=== PATIENT | male | born 1970 | race African-American/Black ===

== ENCOUNTER 2017-09-23 08:58 | Inpatient (IN) | payer MEDICAID, MEDICARE ==
[~2017-09-23] VITALS: Ht 167.6 cm; Wt 88.1 kg
--- NOTE | 2017-09-23 09:14 | NUR ---
PT IS IN ROOM #2A. DR LUJAN EVALUATED THE PT.
--- NOTE | 2017-09-23 09:14 | NUR ---
CURRENTLY, PT HAS POOR RECALL OF MEDICATIONS AND DOSAGES.
[2017-09-23] MEDS ORDERED: INSULIN REGULAR, HUMAN 1,000 UNITS/10 ML VIAL IV ONE (10:15)
[2017-09-23 10:32] LABS: HEMATOCRIT 34.8 % (36.7-47.1); HEMOGLOBIN 11.2 g/dL (12.5-16.3); MEAN CORPUSCULAR HEMOGLOBIN 29.4 uug (23.8-33.4); MEAN CORPUSCULAR HGB CONC 32 g/dL (32.5-36.3); MEAN CORPUSCULAR VOLUME 90.8 fL (73.0-96.2); PLATELET COUNT (AUTO) 276 K/uL (152-348); RED BLOOD CELL COUNT(AUTO) 3.83 MIL/uL (4.06-5.63); WHITE BLOOD COUNT (AUTO) 9.1 K/uL (3.6-10.2)
[2017-09-23] MEDS ORDERED: INSULIN REGULAR, HUMAN 300 UNIT/3 ML VIAL ONE (10:35)
[2017-09-23 10:40] LABS: ALANINE AMINOTRANSFERASE 37 U/L (16-63); ALKALINE PHOSPHATASE 227 U/L (50-136); ASPARTATE AMINOTRANSFERASE 48 U/L (15-37); BILIRUBIN,DIRECT 0.2 mg/dL (0.0-0.2); BILIRUBIN,TOTAL 0.7 mg/dL (0.2-1.0); CARBON DIOXIDE 21 mmol/L (21-32); CHLORIDE 91 mmol/L (98-107); TOTAL PROTEIN, SERUM 8.1 g/dL (6.4-8.2); UREA NITROGEN, BLOOD 70 mg/dL (7-18)
[2017-09-23 10:50] LABS: CREATININE 11.5 mg/dL (0.6-1.3); GLUCOSE 483 mg/dL (74-106); POTASSIUM 6.2 mmol/L (3.5-5.1)
[2017-09-23 10:52] LABS: ETHANOL < 3 MG/DL (0-0)
--- NOTE | 2017-09-23 10:52 | NUR ---
[facility] WAS CALLED FOR PT'S MEDICAL AND DEMOGRAFIC INFORMATION. PT WISITED [facility] ON 09/22/17. ACCORDING TO [facility]INA PT DID NOT HAVE ANY LABORATORY WORK UP DONE, NO EKG, NO CHEST X-RAYS. DR LUJAN NOTIFIED. ACCORDING TO MEDINA PT's ADDRESS IS : [address] [place] [address], [phone].
[2017-09-23 10:57] LABS: LYMPHOCYTES % (MANUAL) 8 % (20-40); MONOCYTES % (MANUAL) 7 % (2-10); NEUTROPHILS % (MANUAL) 85 % (42-75)
[2017-09-23 10:58] LABS: THYROID STIMULATING HORMONE 3.092 mIU/mL (0.358-3.740)
[2017-09-23] MEDS ORDERED: CALCIUM CHLORIDE 1 GM/10 ML DISP.SYRIN IVP ONE ×2 (11:00→11:11)
[2017-09-23] MEDS ORDERED: ASPIRIN 325 MG TABLET PO ONE (11:00)
[2017-09-23] MEDS ORDERED: ASPIRIN 325 MG TABLET ONE (11:10)
[2017-09-23] MEDS ORDERED: Z GUARD REMEDY PASTE 57 GM TUBE TOP PRN (11:15)
[2017-09-23] MEDS ORDERED: ONDANSETRON 4 MG/2 ML VIAL IV PRN (11:15)
[2017-09-23] MEDS ORDERED: HYDROCODONE/APAP 5-325MG TABLET PO PRN (11:15)
[2017-09-23] MEDS ORDERED: ACETAMINOPHEN 325 MG TABLET PO PRN (11:15)
--- NOTE | 2017-09-23 11:41 | NUR ---
PT WAS TRNASFERED TO ROOM #222. REPORT WAS GIVEN TO DRY KILN FEEDER.
[2017-09-23] MEDS: BLOOD SUGAR DIAGNOSTIC 1 EACH STRIP VI SCH ×3 (12:39→21:03)
[2017-09-23 13:15] VITALS: BP 145/95
[2017-09-23 15:32] VITALS: BP 106/67
--- NOTE | 2017-09-23 15:41 | NUR ---
2D ECHO 25-30%, RESTING COMFORTABLY NO SOB OR C/O PAIN SR ON MONITOR
[2017-09-23] MEDS: INSULIN REGULAR, HUMAN 300 UNIT/3 ML VIAL SQ PRN ×2 (16:00→21:03)
[2017-09-23] MEDS: CARVEDILOL 3.125 MG TABLET PO SCH (17:49)
--- NOTE | 2017-09-23 20:00 | NUR ---
Notified Concha Cruz glucose below 200. Addendum: 09/23/17 at 2018 by MARV WHITE RN Concha Bernard
[2017-09-23 20:16] VITALS: BP 127/89
[2017-09-24] MEDS: BLOOD SUGAR DIAGNOSTIC 1 EACH STRIP VI SCH ×9 (00:07→23:29)
[2017-09-24] MEDS: INSULIN REGULAR, HUMAN 300 UNIT/3 ML VIAL SQ PRN ×3 (03:33→15:25)
[2017-09-24] MEDS: ZOLPIDEM 5 MG TABLET PO PRN ×2 (03:34→20:43)
[2017-09-24 04:00] VITALS: BP 120/89
[2017-09-24 05:22] VITALS: BP 120/89
[2017-09-24] MEDS: PANTOPRAZOLE SODIUM 40 MG TABLET.DR PO SCH (06:28)
[2017-09-24 07:30] VITALS: BP 129/97
--- NOTE | 2017-09-24 07:48 | NUR ---
ACCUCHEK 48, AWAKE ALERT AND ORIENTED X3, WARM AND DRY SKIN, APPLE JUICE WITH PACKET OF SUGAR GIVEN. SR ON MONITOR WILL OBSERVE.
[2017-09-24 08:12] LABS: BILIRUBIN,TOTAL 0.7 mg/dL (0.2-1.0); MAGNESIUM 1.8 mg/dL (1.8-2.4); PHOSPHOROUS 5.3 mg/dL (2.5-4.9); TOTAL PROTEIN, SERUM 7.1 g/dL (6.4-8.2)
[2017-09-24 08:22] LABS: CREATININE 10.3 mg/dL (0.6-1.3)
[2017-09-24] MEDS: CARVEDILOL 3.125 MG TABLET PO SCH ×2 (08:22→16:39)
[2017-09-24 08:40] LABS: THYROID STIMULATING HORMONE 3.012 mIU/mL (0.358-3.740)
--- NOTE | 2017-09-24 08:52 | NUR ---
SEEN BY DR AVILA WITH ORDERS. SEE NOTES.
[2017-09-24] MEDS ORDERED: LISINOPRIL 5 MG TABLET PO SCH (09:00)
[2017-09-24] MEDS ORDERED: ASPIRIN EC 325 MG TABLET.DR PO SCH (09:00)
--- NOTE | 2017-09-24 09:00 | NUR ---
BS 121 AWAKE ALERT AND ORIENTED X2. OBSERVE SEEN BY DR AVILA SEE NOTES
[2017-09-24 10:58] LABS: BILIRUBIN,DIRECT 0.3 mg/dL (0.0-0.2); BILIRUBIN,TOTAL 0.7 mg/dL (0.2-1.0); TOTAL PROTEIN, SERUM 7.2 g/dL (6.4-8.2)
[2017-09-24 10:58] LABS: HEMATOCRIT 32.6 % (36.7-47.1); HEMOGLOBIN 10.7 g/dL (12.5-16.3); MEAN CORPUSCULAR HEMOGLOBIN 30.1 uug (23.8-33.4); MEAN CORPUSCULAR HGB CONC 33 g/dL (32.5-36.3); MEAN CORPUSCULAR VOLUME 91.6 fL (73.0-96.2); PLATELET COUNT (AUTO) 218 K/uL (152-348); RED BLOOD CELL COUNT(AUTO) 3.56 MIL/uL (4.06-5.63); WHITE BLOOD COUNT (AUTO) 7.8 K/uL (3.6-10.2)
[2017-09-24 11:28] LABS: EOSINOPHILS % (MANUAL) 1 % (0-8); LYMPHOCYTES % (MANUAL) 15 % (20-40); MONOCYTES % (MANUAL) 12 % (2-10); NEUTROPHILS % (MANUAL) 72 % (42-75)
[2017-09-24 12:12] VITALS: BP 117/77
--- NOTE | 2017-09-24 14:30 | NUR ---
PATIENT WANTS TO GO DOWN AND SMOKE NO SMOKING POLICY REINFORCED, HOSPITALIST NOTIFIED WITH ORDERS. WILL START NICOTINE PATCH AND 1:1 SITTER
[2017-09-24 15:27] VITALS: BP 129/93
[2017-09-24 20:00] VITALS: BP 136/88
--- NOTE | 2017-09-24 20:30 | NUR ---
Received patient awake & alert watching TV, no SOB denies chest pain. 1:1 sitter in room. Vital signs WNL. Patient requesting for a sleep meds, Ambien 10mg p.o given.
--- NOTE | 2017-09-25 | NUR ---
Refused 12 MN accucheck.
[2017-09-25 00:10] VITALS: BP 125/88
[2017-09-25 04:28] VITALS: BP 129/94
[2017-09-25] MEDS: PANTOPRAZOLE SODIUM 40 MG TABLET.DR PO SCH (05:54)
--- NOTE | 2017-09-25 06:00 | NUR ---
Fairly rested. Current accucheck 353 mg/dl, covered with 12 units Regular insulin per Insulin sliding scale coverage.
[2017-09-25] MEDS: BLOOD SUGAR DIAGNOSTIC 1 EACH STRIP VI SCH ×6 (06:13→23:15)
[2017-09-25] MEDS: INSULIN REGULAR, HUMAN 300 UNIT/3 ML VIAL SQ PRN ×4 (06:16→20:56)
[2017-09-25 07:07] LABS: MAGNESIUM 1.8 mg/dL (1.8-2.4)
[2017-09-25 07:12] LABS: POTASSIUM 6.8 mmol/L (3.5-5.1)
[2017-09-25 07:13] LABS: CREATININE 12.2 mg/dL (0.6-1.3)
[2017-09-25 07:33] LABS: BASOPHILS # (AUTO) 0.1 K/uL (0.0-8.0); BASOPHILS % (AUTO) 0.8 % (0.0-2.0); EOSINOPHILS # (AUTO) 0.1 K/uL (0.0-0.7); EOSINOPHILS % (AUTO) 0.7 % (0.0-7.0); HEMATOCRIT 33.7 % (36.7-47.1); HEMOGLOBIN 11.1 g/dL (12.5-16.3); LYMPHOCYTES # (AUTO) 4.1 K/uL (20.0-40.0); LYMPHOCYTES % (AUTO) 54.2 % (20.5-51.5); MEAN CORPUSCULAR HEMOGLOBIN 29.7 uug (23.8-33.4); MEAN CORPUSCULAR HGB CONC 33 g/dL (32.5-36.3); MEAN CORPUSCULAR VOLUME 90.2 fL (73.0-96.2); MONOCYTES # (AUTO) 0.5 K/uL (2.0-10.0); MONOCYTES % (AUTO) 6.7 % (0.0-11.0); NEUTROPHILS # (AUTO) 2.9 K/uL (1.8-8.9); NEUTROPHILS % (AUTO) 37.6 % (38.5-71.5); PLATELET COUNT (AUTO) 234 K/uL (152-348); RED BLOOD CELL COUNT(AUTO) 3.73 MIL/uL (4.06-5.63); WHITE BLOOD COUNT (AUTO) 7.6 K/uL (3.6-10.2)
[2017-09-25 08:00] VITALS: BP 120/87
--- NOTE | 2017-09-25 08:00 | NUR ---
AWAKE COOPERATE NO SOB OR PAIN RESTING WELL WITH CALL THOMAS IN REACH AND ON FALL PRECAUTION
[2017-09-25 08:06] LABS: HEPATITIS A AB, TOTAL Negative (Negative); HEPATITIS B SURFACE AB Reactive (.); HEPATITIS B SURFACE AG Negative (Negative)
[2017-09-25] MEDS: CARVEDILOL 3.125 MG TABLET PO SCH ×2 (08:19→17:02)
[2017-09-25] MEDS: LISINOPRIL 5 MG TABLET PO SCH (08:19)
[2017-09-25] MEDS: ASPIRIN EC 81 MG TABLET.DR PO SCH (08:19)
[2017-09-25] MEDS: NICOTINE 14 MG/24HR PATCH TD SCH (08:20)
[2017-09-25] MEDS ORDERED: ASPIRIN EC 325 MG TABLET.DR PO SCH (09:00)
[2017-09-25 10:42] VITALS: BP 100/48
[2017-09-25 10:55] LABS: EOSINOPHILS % (MANUAL) 2 % (0-8); LYMPHOCYTES % (MANUAL) 23 % (20-40); MONOCYTES % (MANUAL) 9 % (2-10); NEUTROPHILS % (MANUAL) 66 % (42-75)
--- NOTE | 2017-09-25 13:30 | NUR ---
DR AVILA WAS HERE LAB RESULT INFORM STATE ORDER HD TODAY
[2017-09-25 14:32] VITALS: BP 102/50
--- NOTE | 2017-09-25 17:30 | NUR ---
START HD TODAY DOING WELL NO PAIN
--- NOTE | 2017-09-25 18:00 | NUR ---
STABLE HEMODYNAMIC STATUS NO ACUTE DISTRESS SAFETY MEASURE PROVIDED CALL LIGHT IN REACH
--- NOTE | 2017-09-25 20:24 | NUR ---
Patient in room S/P Hemodialysis (2 liters out). No SOB denies chest pain. Vital signs are stable. Night snacks provided.
[2017-09-25] MEDS: ZOLPIDEM 5 MG TABLET PO PRN (20:51)
[2017-09-26] MEDS: PANTOPRAZOLE SODIUM 40 MG TABLET.DR PO SCH (04:50)
[2017-09-26] MEDS: BLOOD SUGAR DIAGNOSTIC 1 EACH STRIP VI SCH ×5 (04:50→20:20)
[2017-09-26] MEDS: INSULIN REGULAR, HUMAN 300 UNIT/3 ML VIAL SQ PRN ×3 (04:52→20:21)
--- NOTE | 2017-09-26 07:00 | NUR ---
No acute resp distress, fairly rested slept 5 hours. Assisted w/ all needs. 1:1 sitter in room.
[2017-09-26 07:48] LABS: BILIRUBIN,TOTAL 0.6 mg/dL (0.2-1.0); MAGNESIUM 1.8 mg/dL (1.8-2.4); PHOSPHOROUS 5.3 mg/dL (2.5-4.9); POTASSIUM 5.7 mmol/L (3.5-5.1); TOTAL PROTEIN, SERUM 6.9 g/dL (6.4-8.2)
[2017-09-26 07:52] LABS: HEMATOCRIT 31.1 % (36.7-47.1); HEMOGLOBIN 10.4 g/dL (12.5-16.3); MEAN CORPUSCULAR HEMOGLOBIN 30.7 uug (23.8-33.4); MEAN CORPUSCULAR HGB CONC 34 g/dL (32.5-36.3); MEAN CORPUSCULAR VOLUME 91.4 fL (73.0-96.2); PLATELET COUNT (AUTO) 218 K/uL (152-348); WHITE BLOOD COUNT (AUTO) 6.9 K/uL (3.6-10.2)
[2017-09-26 07:55] LABS: CREATININE 10.2 mg/dL (0.6-1.3)
[2017-09-26] MEDS: CARVEDILOL 3.125 MG TABLET PO SCH ×3 (08:00→17:05)
--- NOTE | 2017-09-26 08:00 | NUR ---
AWAKE ORTX2 SOMEFORGETFUL BUT ABLE TO FOLLOW SIMPLE DIRECTION WELL NO ACUTE DISTRESS OR PAIN GALI A-V SHUNT INPLACE WITH GOOD BRUIT/THRILL RESTING WITH CALL LIGHT IN REACH AND SITTER 1:1 FOR SAFETY AT BEDSIDE
--- NOTE | 2017-09-26 08:30 | NUR ---
DR AVILA SEEN PATIENT AND LAB RESULT AND ORDER HD IN AM AND LAB WORK TODAY EAT BREAKFAST WELL REFUSED TO DO ACCU CHECK BS PRIOR EAT THIS AM
[2017-09-26 08:40] LABS: EOSINOPHILS % (MANUAL) 2 % (0-8); LYMPHOCYTES % (MANUAL) 23 % (20-40); MONOCYTES % (MANUAL) 8 % (2-10); NEUTROPHILS % (MANUAL) 67 % (42-75)
[2017-09-26] MEDS: LISINOPRIL 5 MG TABLET PO SCH ×2 (09:00→11:30)
[2017-09-26] MEDS: NICOTINE 14 MG/24HR PATCH TD SCH (09:41)
[2017-09-26] MEDS: ASPIRIN EC 81 MG TABLET.DR PO SCH (09:44)
[2017-09-26 11:30] VITALS: BP 135/85
[2017-09-26 16:15] VITALS: BP 148/83
--- NOTE | 2017-09-26 17:30 | NUR ---
STABLE HEMODYNAMIC STATUS NO ACUTE DISTRESS NO SOB OR PAIN SAFETY MEASURE PROVIDED CALL LIGHT IN REACH AND SITTER 1:1 AT BEDSIDE
[2017-09-26 20:00] VITALS: BP 134/95
[2017-09-26] MEDS: ZOLPIDEM 5 MG TABLET PO PRN (20:10)
--- NOTE | 2017-09-26 21:00 | NUR ---
Patient in room w/ 1:1 sitter. Awake alert & oriented no SOB denies any pain. Patient requesting for his sleeping pills. Vital signs are stable. 8 pm Accu check showed 168 mg/dl, 3 units Regular insulin administered SQ. Ambien 10mg po given as ordered.
--- NOTE | 2017-09-27 | NUR ---
Patient asleep, refused 12 MN accu check.
[2017-09-27 04:00] VITALS: BP 129/92
[2017-09-27] MEDS: BLOOD SUGAR DIAGNOSTIC 1 EACH STRIP VI SCH ×7 (04:00→23:40)
--- NOTE | 2017-09-27 04:00 | NUR ---
Patient asleep resting comfortably. Refused 4AM accu check
[2017-09-27] MEDS: PANTOPRAZOLE SODIUM 40 MG TABLET.DR PO SCH (06:21)
--- NOTE | 2017-09-27 06:30 | NUR ---
Awake, assisted to the bathroom.
--- NOTE | 2017-09-27 06:58 | NUR ---
Vital signs WNL, patient still in the bathroom.
[2017-09-27] MEDS: CARVEDILOL 3.125 MG TABLET PO SCH ×2 (07:56→18:00)
[2017-09-27] MEDS: ASPIRIN EC 81 MG TABLET.DR PO SCH (08:00)
[2017-09-27] MEDS: NICOTINE 14 MG/24HR PATCH TD SCH (08:01)
[2017-09-27] MEDS: LISINOPRIL 5 MG TABLET PO SCH (08:01)
[2017-09-27] MEDS: INSULIN REGULAR, HUMAN 300 UNIT/3 ML VIAL SQ PRN ×2 (08:03→23:43)
[2017-09-27 12:29] VITALS: BP 142/86
[2017-09-27 15:50] VITALS: BP 134/96
--- NOTE | 2017-09-27 18:53 | NUR ---
PT OBSERVED IN THE RESTROOM, AOX4, NO SIGNS OF ACUTE DISTRESS, PT HAD DIALYSIS DONE TODAY. CONTINUE TO MONITOR PT.
--- NOTE | 2017-09-27 19:02 | NUR ---
PT HAS REFUSED ACCU CHECKS THROUGHOUT THE DAY.
--- NOTE | 2017-09-27 19:30 | NUR ---
RECEIVED SHIFT REPORT FROM GINNA BEARD. PT IN RESTROOM AT THIS TIME. DENIES PAIN, SOB, C/P, N/V. PT ASSISTED TO BED, BED IN LOW AND LOCKED POSITION WITH BILATERAL SIDERAILS UP. CALL LIGHT WITHIN REACH.
[2017-09-27 20:00] VITALS: BP 146/94
[2017-09-27] MEDS: INSULIN GLARGINE,HUM 300 UNITS/3 ML CARTRIDGE SQ SCH (20:07)
--- NOTE | 2017-09-27 20:09 | NUR ---
PT REFUSED ACCUCHECK AND LANTUS. EXPLAINED RISKS AND BENEFITS. OFFERED X 3, PT STILL REFUSED.
[2017-09-27] MEDS: ZOLPIDEM 5 MG TABLET PO PRN (22:11)
[2017-09-28] MEDS: BLOOD SUGAR DIAGNOSTIC 1 EACH STRIP VI SCH ×5 (03:57→20:05)
[2017-09-28] MEDS: INSULIN REGULAR, HUMAN 300 UNIT/3 ML VIAL SQ PRN ×3 (03:58→20:04)
[2017-09-28 05:35] VITALS: BP 138/90
[2017-09-28] MEDS: PANTOPRAZOLE SODIUM 40 MG TABLET.DR PO SCH (06:12)
[2017-09-28] MEDS: LISINOPRIL 5 MG TABLET PO SCH (08:59)
[2017-09-28] MEDS: NICOTINE 14 MG/24HR PATCH TD SCH (08:59)
[2017-09-28] MEDS: CARVEDILOL 3.125 MG TABLET PO SCH ×2 (08:59→17:23)
[2017-09-28] MEDS: ASPIRIN EC 81 MG TABLET.DR PO SCH (08:59)
[2017-09-28 10:30] VITALS: BP 147/106
[2017-09-28 15:48] VITALS: BP 135/100
--- NOTE | 2017-09-28 18:40 | NUR ---
PT SITTING UP IN A CHAIR READING, WITH NO ACUTE DISTRESS. EXPRESSING THAT HE WANTS TO GO HOME. PT IS IRRITABLE, COOPERATIVE WITH MEDICATION BUT NOT WITH ACCU CHECKS.PT REFUSES TO PROVIDE A URINE SAMPLE.AOX3, BUT CAN NOT RECALL THE MEDICATIONS HE TAKES OR THE FACILITY THAT HE STAYS AT. CONTINUE TO MONITOR PT.
[2017-09-28 19:00] VITALS: BP 146/98
--- NOTE | 2017-09-28 19:37 | NUR ---
RECEIVED SHIFT REPORT FROM GINNA BEARD. PT IN BED AT THIS TIME, DENIES PAIN, C/P, SOB, N/V. BED IN LOW AND LOCKED POSITION WITH BILATERAL UPPER SIDERAILS UP. CALL LIGHT WITHIN REACH.
[2017-09-28] MEDS: INSULIN GLARGINE,HUM 300 UNITS/3 ML CARTRIDGE SQ SCH (20:04)
[2017-09-28] MEDS: ZOLPIDEM 5 MG TABLET PO PRN (22:39)
[2017-09-29] VITALS: BP 150/88
--- NOTE | 2017-09-29 01:50 | NUR ---
UPON DOING ROUNDS, PT NOTED TO BE DIAPHORETIC AND WITH LABORED BREATHING. PT HAD REFUSED ACCUCHECK AT 0000. ACCUCHECK DONE AT 0150, BS 18 ON RETEST. PT IS AROUSABLE, ABLE TO DRINK ORANGE JUICE WITH ASSIST. CHARGE NURSE NOTIFIED, MADE AWARE. Addendum: 09/29/17 at 0255 by WHITLEY PEOPLES RN PT PLACED ON O2 3 LPM VIA N/C.
--- NOTE | 2017-09-29 02:40 | NUR ---
RECHECK ACCUCHECK, 24. IV ACCESS OBTAINED 20 G L AC. D50 ADMIN ORDERED BY MD. WILL CONTINUE TO MONITOR. PT IS SLEEPING, BUT EASILY AROUSABLE AT THIS TIME.
[2017-09-29] MEDS: DEXTROSE 50% 50 ML DISP.SYRIN IV PRN (02:47)
[2017-09-29] MEDS: INSULIN REGULAR, HUMAN 300 UNIT/3 ML VIAL SQ PRN ×4 (03:01→21:05)
[2017-09-29] MEDS: BLOOD SUGAR DIAGNOSTIC 1 EACH STRIP VI SCH ×6 (03:01→21:04)
--- NOTE | 2017-09-29 03:02 | NUR ---
0400 ACCUCHECK 148. PT REFUSES INSULIN AT THIS TIME. WILL CONTINUE TO MONITOR. PT IN BED, STABLE AT THIS TIME.
[2017-09-29 04:00] VITALS: BP 150/97
[2017-09-29] MEDS ORDERED: CLONIDINE HCL 0.1 MG TABLET PO PRN (04:00)
--- NOTE | 2017-09-29 04:02 | NUR ---
PT C/O FEELING "OFF", V/S CHECKED 162/98, HR 96, RR 20, SPO2 98% ON ROOM AIR. DR. HER NOTIFIED, RECEIVED ORDERS FOR CLONIDINE 0.1 MG PO PRN Q6H FOR SBP > 160. WILL ADMIN CLONIDINE PER ORDER AND REASSESS.
[2017-09-29 04:05] VITALS: BP 162/98
--- NOTE | 2017-09-29 05:08 | NUR ---
V/S RECHECKED POST CLONIDINE ADMIN - 134/86, HR 92, RR 18, SPO2 98% ON O2 3 LPM VIA N/C.
[2017-09-29] MEDS: PANTOPRAZOLE SODIUM 40 MG TABLET.DR PO SCH (06:16)
--- NOTE | 2017-09-29 06:16 | NUR ---
PT REFUSED PROTONIX. EXPLAINED RISKS AND BENEFITS, OFFERED X 3. PT STILL REFUSED. PT IS VERY NON-COMPLIANT WITH MANY ASPECTS OF HIS CARE. ADDITIONAL PT TEACHING AND REINFORCEMENT IS NEEDED.
--- NOTE | 2017-09-29 07:30 | NUR ---
RESTING QUIET IN BED NO SOB OR PAIN ON ASPIRATION /FALL PRECAUTION CALL LIGHT IN REACH
--- NOTE | 2017-09-29 08:00 | NUR ---
ON HD AT THIS TIME DOING WELL
--- NOTE | 2017-09-29 08:15 | NUR ---
ACCU CHECK BS PRIOR EAT THIS AM WAS VERY LOW IT WAS 41 AND REPEAT IT WAS 43 LAB WAS CALL TO DO STAT GLUCOSE AND JUICE / COOFEE GIVEN AND CLOSED OBSERVATION
--- NOTE | 2017-09-29 08:25 | NUR ---
LAB DRAW FOR GLUCOSE PATIENT EAT BREAKFAST AT THIS TIME 100
[2017-09-29] MEDS: ASPIRIN EC 81 MG TABLET.DR PO SCH (08:26)
[2017-09-29] MEDS: NICOTINE 14 MG/24HR PATCH TD SCH (08:26)
[2017-09-29 08:33] LABS: HEMATOCRIT 28.3 % (36.7-47.1); HEMOGLOBIN 9.4 g/dL (12.5-16.3)
--- NOTE | 2017-09-29 09:00 | NUR ---
CHECK GLUCOSE AGAIN IT WAS 60 AND CLOSED OBSERVATION
--- NOTE | 2017-09-29 10:00 | NUR ---
ACCU CHECK BS WAS 140 AT THIS TIME RESTING STILL ON HD FLORIN PROCEDURE WELL
[2017-09-29 10:29] LABS: POTASSIUM 5.8 mmol/L (3.5-5.1)
[2017-09-29 10:30] LABS: CREATININE 9.4 mg/dL (0.6-1.3)
--- NOTE | 2017-09-29 11:30 | NUR ---
hd finished take out 2000ml and vs taken stable RESTING BS ACCU CHECK WAS 181 AT THIS TIME
[2017-09-29 11:42] VITALS: BP 121/69
[2017-09-29] MEDS: CARVEDILOL 3.125 MG TABLET PO SCH ×2 (11:50→17:44)
[2017-09-29] MEDS: LISINOPRIL 5 MG TABLET PO SCH (11:50)
--- NOTE | 2017-09-29 13:00 | NUR ---
EAT LUNCH WELL NO N/V OR PAIN OOB TO BRP HAVING 1 BM THIS AFTERNOON
[2017-09-29 16:00] VITALS: BP 138/92
--- NOTE | 2017-09-29 17:30 | NUR ---
STABLE HEMODYNAMIC STATUS ,PAIN UNDER CONTROL SAFETY MEASURE PROVIDED CALL LIGHT IN REACH
[2017-09-29 19:00] VITALS: BP 142/83
--- NOTE | 2017-09-29 19:40 | NUR ---
RECEIVED SHIFT REPORT FROM GINNA ALMONTE. PT RESTING IN BED. DENIES PAIN, C/P, SOB, N/V. BED IN LOW AND LOCKED POSITION WITH BILATERAL UPPER SIDERAILS UP. CALL LIGHT WITHIN REACH. PT TEACHING PROVIDED RE GLYCEMIC CONTROL. WILL CONTINUE TO MONITOR.
[2017-09-29] MEDS: INSULIN GLARGINE,HUM 300 UNITS/3 ML CARTRIDGE SQ SCH (21:00)
[2017-09-29] MEDS: ZOLPIDEM 5 MG TABLET PO PRN (21:25)
[2017-09-30] MEDS: INSULIN REGULAR, HUMAN 300 UNIT/3 ML VIAL SQ PRN ×5 (00:05→23:44)
[2017-09-30] MEDS: BLOOD SUGAR DIAGNOSTIC 1 EACH STRIP VI SCH ×6 (00:06→19:52)
[2017-09-30 04:00] VITALS: BP 137/80
[2017-09-30] MEDS: PANTOPRAZOLE SODIUM 40 MG TABLET.DR PO SCH (06:31)
--- NOTE | 2017-09-30 08:00 | NUR ---
AWAKE COOPERATE WELL AT THIS TIME EAT BREAKFAST WITH GOOD APPETITE NO ACUTE DISTRESS RESTING IN BED WITH CALL LIGHT IN REACH
[2017-09-30] MEDS: NICOTINE 14 MG/24HR PATCH TD SCH (08:16)
[2017-09-30] MEDS: ASPIRIN EC 81 MG TABLET.DR PO SCH (08:16)
[2017-09-30] MEDS: LISINOPRIL 5 MG TABLET PO SCH (08:17)
[2017-09-30] MEDS: CARVEDILOL 3.125 MG TABLET PO SCH ×2 (08:17→17:57)
[2017-09-30 11:12] VITALS: BP 133/96
--- NOTE | 2017-09-30 13:00 | NUR ---
PATIENT STATE WANT TO GO HOME PROJECT MANAGEMENT PROFESSOR WAS AWARE STILL WORKING ON D/C PLANNING
[2017-09-30 15:23] VITALS: BP 136/95
--- NOTE | 2017-09-30 17:30 | NUR ---
STABLE CONDITION NO ACUTE DISTRESS ,PAIN AND NAUSEA UNDER CONTROL SAFETY MEASURE PROVIDED CALL LIGHT IN REACH AND REMIND TO CALL WHEN NEEDED
[2017-09-30 19:00] VITALS: BP 114/99
--- NOTE | 2017-09-30 19:10 | NUR ---
RECEIVED PT AWAKE ON BED, AOX1, NO SOB, DENIES ANY CHEST PAIN. IV SITE ON LFA, PATENT AND INTACT. AV SHUNT ON GALI, INTACT. SAFETY MEASURES INITIATED, CALL THOMAS WITHIN REACH.
[2017-09-30] MEDS: INSULIN GLARGINE,HUM 300 UNITS/3 ML CARTRIDGE SQ SCH (20:55)
[2017-09-30] MEDS: ZOLPIDEM 5 MG TABLET PO PRN (23:35)
[2017-10-01] MEDS: BLOOD SUGAR DIAGNOSTIC 1 EACH STRIP VI SCH ×6 (00:33→20:55)
--- NOTE | 2017-10-01 00:49 | NUR ---
PT NOTED TO HAVE PRODUCTIVE DRY COUGH SINCE 0000H, PAGED COMPENSATION ASSOCIATE ON PT'S STATUS. ORDER RECEIVED TO START ON ROBITUSSIN 10ML PO Q4HPRN NEEDED FOR COUGH. ORDERS READ BACK AND CARRIED OUT.
[2017-10-01] MEDS: GUAIFENESIN/CODEINE 5 ML LIQUID UDC PO PRN ×3 (00:55→22:52)
[2017-10-01 04:00] VITALS: BP 115/73
--- NOTE | 2017-10-01 04:40 | NUR ---
ACCUCHECK OF 58 MG/DL, PATIENT AROUSABLE, DENIES ANY LIGHTHEADEDNESS OR WEAKNESS. HR OF 87. APPLE JUICE GIVEN. WILL REASSESS
--- NOTE | 2017-10-01 05:37 | NUR ---
REASSESSED BLOOD SUGAR LEVEL, 104MG/DL. PT ALERT AND AROUSABLE TO NAME. NO DIAPHORESIS, DENIES ANY LIGHTHEADEDNESS.
[2017-10-01] MEDS: PANTOPRAZOLE SODIUM 40 MG TABLET.DR PO SCH (06:03)
--- NOTE | 2017-10-01 06:52 | NUR ---
PT ASLEEP ON BED, NO SIGNS OF RESPIRATORY DISTRESS NOTED. PT HAS BEEN COOPERATIVE WITH CARE. SAFE ENVIRONMENT MAINTAINED AT ALL TIMES, CALL THOMAS WITHIN REACH.
[2017-10-01 07:27] LABS: BASOPHILS # (AUTO) 0.1 K/uL (0.0-8.0); BASOPHILS % (AUTO) 1.4 % (0.0-2.0); EOSINOPHILS # (AUTO) 0.1 K/uL (0.0-0.7); EOSINOPHILS % (AUTO) 1.4 % (0.0-7.0); HEMATOCRIT 29.2 % (36.7-47.1); HEMOGLOBIN 9.6 g/dL (12.5-16.3); LYMPHOCYTES # (AUTO) 2.7 K/uL (20.0-40.0); LYMPHOCYTES % (AUTO) 40.4 % (20.5-51.5); MEAN CORPUSCULAR HEMOGLOBIN 30.1 uug (23.8-33.4); MEAN CORPUSCULAR HGB CONC 33 g/dL (32.5-36.3); MEAN CORPUSCULAR VOLUME 91.6 fL (73.0-96.2); MONOCYTES # (AUTO) 0.5 K/uL (2.0-10.0); MONOCYTES % (AUTO) 8.1 % (0.0-11.0); NEUTROPHILS # (AUTO) 3.2 K/uL (1.8-8.9); NEUTROPHILS % (AUTO) 48.7 % (38.5-71.5); PLATELET COUNT (AUTO) 212 K/uL (152-348); RED BLOOD CELL COUNT(AUTO) 3.19 MIL/uL (4.06-5.63); WHITE BLOOD COUNT (AUTO) 6.6 K/uL (3.6-10.2)
[2017-10-01 07:35] LABS: BILIRUBIN,TOTAL 0.6 mg/dL (0.2-1.0); PHOSPHOROUS 5.6 mg/dL (2.5-4.9); TOTAL PROTEIN, SERUM 7.1 g/dL (6.4-8.2)
[2017-10-01 07:41] LABS: CREATININE 10.2 mg/dL (0.6-1.3); POTASSIUM 6.5 mmol/L (3.5-5.1)
--- NOTE | 2017-10-01 07:57 | NUR ---
Sleeping, appears comfortable. Not in distress
[2017-10-01] MEDS: CARVEDILOL 3.125 MG TABLET PO SCH ×2 (08:00→20:00)
[2017-10-01 08:59] LABS: EOSINOPHILS % (MANUAL) 1 % (0-8); LYMPHOCYTES % (MANUAL) 28 % (20-40); MONOCYTES % (MANUAL) 12 % (2-10); NEUTROPHILS % (MANUAL) 59 % (42-75)
[2017-10-01] MEDS: LISINOPRIL 5 MG TABLET PO SCH (09:00)
--- NOTE | 2017-10-01 09:00 | NUR ---
Spoke with Dr. Chowdhury and Dr. Thornton, K 6.5, for hemodialysis
[2017-10-01] MEDS: ASPIRIN EC 81 MG TABLET.DR PO SCH (09:21)
[2017-10-01] MEDS: NICOTINE 14 MG/24HR PATCH TD SCH (09:21)
[2017-10-01 12:08] VITALS: BP 138/73
[2017-10-01] MEDS: INSULIN REGULAR, HUMAN 300 UNIT/3 ML VIAL SQ PRN ×2 (12:32→20:57)
--- NOTE | 2017-10-01 14:00 | NUR ---
Spoke with M[facility] RN regarding hemodialysis schedule today
[2017-10-01 15:09] LABS: HEPATITIS A AB, TOTAL Negative (Negative); HEPATITIS B SURFACE AB Reactive (.); HEPATITIS B SURFACE AG Negative (Negative)
[2017-10-01 16:38] VITALS: BP 112/70
--- NOTE | 2017-10-01 18:47 | NUR ---
NPO during hemodialysis, Insulin sliding scale not given. Endorsed fro further care and follow up
--- NOTE | 2017-10-01 19:10 | NUR ---
PT IN BED FROM POST HEMODIALYSIS, OUTPUT OF 2L PER DIALYSIS NURSE, MEGAN CHACKO. NO SIGNS OF RESPIRATORY DISTRESS NOTED. IV SITE LFA, PATENT AND INTACT. SAFETY MEASURES INITIATED, CALL THOMAS WITHIN REACH.
[2017-10-01 20:00] VITALS: BP 126/96
[2017-10-01] MEDS: INSULIN GLARGINE,HUM 300 UNITS/3 ML CARTRIDGE SQ SCH (21:03)
--- NOTE | 2017-10-01 22:30 | NUR ---
PT COMPLAINT OF STOMACH UPSET AND HEART BURN. PAGED MD I&C TECH, DR OMALLEY TO NOTIFY ON PT STATUS. ORDERS RECEIVED TO GIVE MYLANTA 30ML PO Q6HPRN FOR STOMACH UPSET. ORDERS READ BACK AND CARRIED OUT.
[2017-10-01] MEDS: MAG HYDROX/AL HYDROX/SIMETH 30 ML LIQUID UDC PO PRN (22:52)
[2017-10-01] MEDS: ZOLPIDEM 5 MG TABLET PO PRN (23:25)
[2017-10-02] MEDS: BLOOD SUGAR DIAGNOSTIC 1 EACH STRIP VI SCH ×7 (01:10→23:29)
[2017-10-02] MEDS: INSULIN REGULAR, HUMAN 300 UNIT/3 ML VIAL SQ PRN ×3 (01:13→20:20)
[2017-10-02 04:56] VITALS: BP 136/99
--- NOTE | 2017-10-02 06:40 | NUR ---
PT RESTING COMFORTABLY ON BED, NO SOB, DENIES ANY CHEST PAIN. ALL NEEDS MET AND ATTENDED. SAFE ENVIRONMENT MAINTAINED AT ALL TIMES, CALL THOMAS WITHIN REACH
[2017-10-02] MEDS: PANTOPRAZOLE SODIUM 40 MG TABLET.DR PO SCH (06:41)
[2017-10-02] MEDS: LISINOPRIL 5 MG TABLET PO SCH (08:46)
[2017-10-02] MEDS: CARVEDILOL 3.125 MG TABLET PO SCH ×2 (08:46→17:24)
[2017-10-02] MEDS: ASPIRIN EC 81 MG TABLET.DR PO SCH (08:46)
[2017-10-02] MEDS: NICOTINE 14 MG/24HR PATCH TD SCH (08:46)
--- NOTE | 2017-10-02 08:49 | NUR ---
Blood glucose 35. Patient is angry with lancets/poking, refused recheck. Patient is eating breakfast and asymptomatic. alert and denies weakness. Will monitor
[2017-10-02 11:41] VITALS: BP 131/72
[2017-10-02] MEDS: DEXTROSE 50% 50 ML DISP.SYRIN IV PRN (12:24)
--- NOTE | 2017-10-02 12:31 | NUR ---
Blood glucose 62; No IV access,and refused reinsertion. D50 not given. Juice given with lunch. Discussed with Juan DOCTOR OF CHIROPRACTIC regarding low blood glucose results and adjusting Lantus dose
[2017-10-02] MEDS: MAG HYDROX/AL HYDROX/SIMETH 30 ML LIQUID UDC PO PRN (14:57)
--- NOTE | 2017-10-02 16:30 | NUR ---
BG 144; will not cover, will continue to monitor
[2017-10-02 16:34] VITALS: BP 137/94
--- NOTE | 2017-10-02 17:00 | NUR ---
With discharge order but no placement. Juan Pierre informed.
[2017-10-02] MEDS ORDERED: LACTULOSE 20 G/30 ML LIQUID UDC PO PRN (17:45)
--- NOTE | 2017-10-02 18:00 | NUR ---
No BM x 2 days. Lactulose po given. Had shower. comfortable
--- NOTE | 2017-10-02 19:20 | NUR ---
RECEIVED PATIENT SITTING AT THE SIDE OF HIS BED. AAOX2. IN NO ACUTE DISTRESS. AV FISTULA ON RIGHT UPPER ARM INTACT. NEEDS ASSESSED AND ATTENDED TO. SAFETY MEASURE INITIATED AND CALL THOMAS WITHIN REACH.
[2017-10-02] MEDS ORDERED: BISACODYL 10 MG SUPP.RECT RC PRN (19:45)
[2017-10-02 20:00] VITALS: BP 145/97
[2017-10-02] MEDS: INSULIN GLARGINE,HUM 300 UNITS/3 ML CARTRIDGE SQ SCH (20:27)
[2017-10-03] MEDS: ZOLPIDEM 5 MG TABLET PO PRN ×2 (01:06→23:12)
[2017-10-03] MEDS: GUAIFENESIN/CODEINE 5 ML LIQUID UDC PO PRN ×2 (02:42→23:17)
[2017-10-03] MEDS: BLOOD SUGAR DIAGNOSTIC 1 EACH STRIP VI SCH ×5 (04:43→20:58)
[2017-10-03] MEDS: PANTOPRAZOLE SODIUM 40 MG TABLET.DR PO SCH (06:19)
--- NOTE | 2017-10-03 06:23 | NUR ---
AAOX2. IN NO ACUTE DISTRESS. AV FISTULA ON RIGHT UPPER ARM INTACT. OCCASIONAL COUGH NOTED. PLACED ON O2 AT 2LPM VIA NC FOR COMFORT. OFFERED TO HAVE IV SITE STARTED, BUT PATIENT REFUSED. SAFETY MEASURE MAINTAINED AND CALL THOMAS WITHIN REACH.
[2017-10-03] MEDS: ASPIRIN EC 81 MG TABLET.DR PO SCH (08:02)
[2017-10-03] MEDS: LISINOPRIL 5 MG TABLET PO SCH (08:02)
[2017-10-03] MEDS: CARVEDILOL 3.125 MG TABLET PO SCH ×2 (08:02→17:09)
[2017-10-03] MEDS: NICOTINE 14 MG/24HR PATCH TD SCH (08:02)
[2017-10-03 11:52] VITALS: BP 112/81
--- NOTE | 2017-10-03 13:15 | NUR ---
DIALYSIS DONE ONE LITTER FLUIDS OUT,
[2017-10-03 16:00] VITALS: BP 145/96
[2017-10-03] MEDS: INSULIN REGULAR, HUMAN 300 UNIT/3 ML VIAL SQ PRN ×2 (16:39→21:01)
--- NOTE | 2017-10-03 17:00 | NUR ---
PT REFUSING THE BLOOD PRESSURE MEDS AND CHARGE NURSE MADE AWARE
--- NOTE | 2017-10-03 19:20 | NUR ---
RECEIVED PT ALERT,AWAKE, AND ORIENTEDX4. PT SHOWS NO SIGNS OF DISTRESS. PT NO IV ACCESS.PT HAVE PACEMAKER. CALL LIGHT WITHIN REACH. BED ALARM ON AND IN LOW POSITION, SIDE RAILS UPX2.WILL CONTINUE TO MONITOR.
[2017-10-03 20:00] VITALS: BP 119/82
[2017-10-03] MEDS: INSULIN GLARGINE,HUM 300 UNITS/3 ML CARTRIDGE SQ SCH (21:00)
--- NOTE | 2017-10-03 23:12 | NUR ---
PT REQUEST FOR AMBIEN FOR SLEEP. PT STABLE. WILL CONTINUE TO MONITOR.
[2017-10-04] MEDS: BLOOD SUGAR DIAGNOSTIC 1 EACH STRIP VI SCH ×6 (00:03→19:43)
--- NOTE | 2017-10-04 04:08 | NUR ---
PT REFUSE ACCU-CHEK TO CHECK HIS BLOOD SUGAR. NON-ADMINISTERED REASON FOR PT REFUSE MED WAS PUT ON EMAR. PT STABLE. WILL CONTINUE TO MONITOR.
[2017-10-04 04:39] VITALS: BP 127/87
[2017-10-04] MEDS: PANTOPRAZOLE SODIUM 40 MG TABLET.DR PO SCH (06:12)
--- NOTE | 2017-10-04 06:38 | NUR ---
PT SLEPT THROUGHOUT THE SHIFT. PT SHOWS NO SIGNS OF DISTRESS. PRESCRIBED MEDICATION GIVEN AND PT TOLERATED IT WELL. PT STABLE AND HAVE WITHIN NORMAL LIMIT VITAL SIGNS. PT REFUSED HIS 0400H ACCU-CHECK. CHARGE NURSE AWARE.SAFETY AND COMFORT PROVIDED. ALL NEEDS ARE MET. WILL ENDORSE ACCORDINGLY TO DAYSHIFT NURSE.
--- NOTE | 2017-10-04 07:39 | NUR ---
pt blood sugar is 63 md made aware orange juice given ,we will recheck again
[2017-10-04] MEDS: LISINOPRIL 5 MG TABLET PO SCH (08:05)
[2017-10-04] MEDS: NICOTINE 14 MG/24HR PATCH TD SCH (08:05)
[2017-10-04] MEDS: ASPIRIN EC 81 MG TABLET.DR PO SCH (08:05)
[2017-10-04] MEDS: CARVEDILOL 3.125 MG TABLET PO SCH ×2 (08:06→17:00)
--- NOTE | 2017-10-04 08:13 | NUR ---
recheck the blood sugar is 88
[2017-10-04 11:18] VITALS: BP 137/91
[2017-10-04] MEDS: INSULIN REGULAR, HUMAN 300 UNIT/3 ML VIAL SQ PRN ×2 (11:23→16:40)
[2017-10-04 15:16] VITALS: BP 133/96
--- NOTE | 2017-10-04 19:20 | NUR ---
RECEIVED PT AWAKE, ALERT, AND ORIENTEDX4. PT SHOWS NO SIGNS OF DISTRESS. IV INTACT AND PATENT. CALL LIGHT WITHIN REACH. BED ALARM ON AND IN LOW POSITION, SIDE RAILS UPX2.WILL CONTINUE TO MONITOR.
[2017-10-04 20:00] VITALS: BP 132/87
[2017-10-04] MEDS: INSULIN GLARGINE,HUM 300 UNITS/3 ML CARTRIDGE SQ SCH (21:00)
[2017-10-05] MEDS: BLOOD SUGAR DIAGNOSTIC 1 EACH STRIP VI SCH ×4 (00:01→12:00)
[2017-10-05] MEDS: ZOLPIDEM 5 MG TABLET PO PRN (00:01)
--- NOTE | 2017-10-05 04:19 | NUR ---
PT REFUSE TO HAVE HIS ACCU-CHEK. HE STATED HE WANTS TO SLEEP. CHARGE NURSE [place]. PT STABLE . SAFETY AND COMFORT PROVIDED. WILL CONTINUE TO MONITOR.
[2017-10-05 04:49] VITALS: BP 153/74
--- NOTE | 2017-10-05 06:10 | NUR ---
PT SLEPT THROUGHOUT THE SHIFT. PT SHOWS NO SIGNS OF DISTRESS. PT IV INTACT AND PATENT. PRESCRIBED MEDICATION GIVEN AND PT TOLERATED IT WELL.PT REFUSE 0400H ACCUCHEK. CHARGE NURSE AWARE. SAFETY AND COMFORT PROVIDED. ALL NEEDS ARE MET. WILL ENDORSE ACCORDINGLY TO INCOMING DAYSHIFT NURSE.
[2017-10-05] MEDS: PANTOPRAZOLE SODIUM 40 MG TABLET.DR PO SCH (06:22)
[2017-10-05] MEDS: CARVEDILOL 3.125 MG TABLET PO SCH (08:31)
[2017-10-05] MEDS: LISINOPRIL 5 MG TABLET PO SCH (08:32)
[2017-10-05] MEDS: NICOTINE 14 MG/24HR PATCH TD SCH (08:32)
[2017-10-05] MEDS: ASPIRIN EC 81 MG TABLET.DR PO SCH (08:32)
--- NOTE | 2017-10-05 10:00 | NUR ---
dialysis done 3 litter removed
[2017-10-05] MEDS: INSULIN REGULAR, HUMAN 300 UNIT/3 ML VIAL SQ PRN (10:08)
[2017-10-05 11:49] VITALS: BP 139/87
--- NOTE | 2017-10-05 12:55 | NUR ---
d/c orders received noted and carried out,d/c instruction and education given to the pt.rn report given over to intermediate,pt left the facility via ambulances in stable condition.
== END 2017-10-05 13:15 | DRG 194 ==
LOC: ER 09:00 → TELE 11:29 → TELE-TD 12:15 → MED 09-24 14:30
PROVIDERS: ADMIT Registered Nurse; ATTEND Internal Medicine
PROC: 5A1D70Z Performance of Urinary Filtration, Intermittent, Less than 6 Hours Per Day (ICD-10-PCS; principal; 2017-09-23)
DX: I13.2 Hypertensive heart and chronic kidney disease with heart failure and with stage 5 chronic kidney disease, or end stage renal disease (principal); I21.A1 Myocardial infarction type 2; G92 Toxic encephalopathy; N18.6 End stage renal disease; D68.59 Other primary thrombophilia; I25.3 Aneurysm of heart; I42.9 Cardiomyopathy, unspecified; Z85.528 Personal history of other malignant neoplasm of kidney; I50.43 Acute on chronic combined systolic (congestive) and diastolic (congestive) heart failure; E11.22 Type 2 diabetes mellitus with diabetic chronic kidney disease; E11.65 Type 2 diabetes mellitus with hyperglycemia; G93.89 Other specified disorders of brain; I07.1 Rheumatic tricuspid insufficiency; Z90.5 Acquired absence of kidney; Z99.2 Dependence on renal dialysis; Z91.15 Patient's noncompliance with renal dialysis; Z79.4 Long term (current) use of insulin; Z95.810 Presence of automatic (implantable) cardiac defibrillator; F17.210 Nicotine dependence, cigarettes, uncomplicated; E87.5 Hyperkalemia; S06.9X0S Unspecified intracranial injury without loss of consciousness, sequela; X58.XXXS Exposure to other specified factors, sequela; D63.1 Anemia in chronic kidney disease; E87.1 Hypo-osmolality and hyponatremia; Z59.0 Homelessness; Z74.09 Other reduced mobility; E66.9 Obesity, unspecified; Z68.31 Body mass index [BMI] 31.0-31.9, adult; Z71.3 Dietary counseling and surveillance; I25.10 Atherosclerotic heart disease of native coronary artery without angina pectoris
CPT/HCPCS: 36415; 70030-TC; 70450; 71045; 83735; 84100; 84443; 85018; 85025; 85730; 86705; 86706; 86708; 86803; 87040; 87340; 90937; 93005; 93307; A4663; G0480; J1815; J2405; J3490